=== PATIENT | female | born 1980 | race Caucasian/White ===

== ENCOUNTER 2018-07-19 23:52 | Emergency (ER) | payer OTHER ==
[~2018-07-19] VITALS: Ht 170.2 cm; Wt 73.1 kg
[2018-07-19 23:55] VITALS: BP_SYST 128; BP_SYST 28; BP_DIAS 79
--- NOTE | 2018-07-20 00:10 | NUR ---
EKG WAS DONE, PT TOLERATED WELL.
--- NOTE | 2018-07-20 00:14 | NUR ---
PT AMBULATED TO THE RESTROOM AND SENT TO LOBBY, PT VSS
--- NOTE | 2018-07-20 01:22 | NUR ---
PATIENT AMBULATED TO BED 2
--- NOTE | 2018-07-20 01:57 | NUR ---
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 PT REPORTS 5/10 CHEST PAIN PMH---ANXIETY ALLERGIES---CONTRAST DYE DENIES N/V/D; SKIN IS PINK/WARM/DRY; AAOX4 WITH EVEN AND STEADY GAIT; LUNGS CLEAR BL; HR EVEN AND REGULAR; PT DENIES ANY FEVER, CP, SOB, OR COUGH AT THIS TIME; PATIENT STATES PAIN OF 5/10 AT THIS TIME; VSS; PATIENT POSITIONED FOR COMFORT; HOB ELEVATED; BEDRAILS UP X2; BED DOWN. ER MD MADE AWARE OF PT STATUS.
[2018-07-20 03:52] VITALS: BP 132/80
== END 2018-07-20 03:50 | disposition home or self-care (01) ==
LOC: MED 23:52
DX: F41.9 Anxiety disorder, unspecified (principal); R00.2 Palpitations
CPT/HCPCS: 81002; 81025; 93005; 99284

== ENCOUNTER 2018-09-28 11:39 | Emergency (ER) | payer OTHER ==
[~2018-09-28] VITALS: Ht 170.2 cm; Wt 74.4 kg
[2018-09-28 11:50] VITALS: BP 122/80
[2018-09-28 12:50] VITALS: BP 131/81
--- NOTE | 2018-09-28 12:50 | NUR ---
C/O MULTIPLE MOSQUITO BITES ALL OVER FACE AND UPPER EXTREMITIES. PT STTAES SHE FOUND AND KILLED MULTIPLE MOSQUITOS IN HER BEDROOM. REPORTS ITCHY AND PAINFUL. HAS TRIED OVER THE COUNTER TOPICAL AND BENADRYL WITH NO RELIEF. SPOTS ARE RED, RAISED, AND CIRCULAR IN NATURE.
--- NOTE | 2018-09-28 13:00 | NUR ---
Patient discharged with v/s stable. Written and verbal after care instructions given and explained. Patient verbalized understanding. Ambulatory with steady gait. All questions addressed prior to discharge. Advised to follow up with PMD.
== END 2018-09-28 12:47 | disposition home or self-care (01) ==
LOC: MED 11:39
DX: S00.86XA Insect bite (nonvenomous) of other part of head, initial encounter (principal); S40.862A Insect bite (nonvenomous) of left upper arm, initial encounter; S40.861A Insect bite (nonvenomous) of right upper arm, initial encounter; Z88.8 Allergy status to other drugs, medicaments and biological substances; W57.XXXA Bitten or stung by nonvenomous insect and other nonvenomous arthropods, initial encounter; Y93.89 Activity, other specified; Y92.009 Unspecified place in unspecified non-institutional (private) residence as the place of occurrence of the external cause; Y99.8 Other external cause status
CPT/HCPCS: 99283

== ENCOUNTER 2018-10-05 22:31 | Emergency (ER) | payer OTHER ==
[~2018-10-05] VITALS: Ht 170.2 cm; Wt 74.4 kg
--- NOTE | 2018-10-05 22:40 | NUR ---
PT AMBULATED TO BED 2.
[2018-10-05 22:47] VITALS: BP 141/77
--- NOTE | 2018-10-05 23:10 | NUR ---
BIB SELF REPORTS BEING BITTEN BY AN UNKNOWN DOG WHILE WALKING HER DOG. 1 CM LAC TO LEFT TEMMPLE. BLEEDING CONTROLLED. PAIN 11/25. NO OTHER SYMPTOMS REPORTED.
--- NOTE | 2018-10-05 23:18 | NUR ---
PATIENT HAS NO INFORMATION ABOUT DOG AND DOES NOT WANT TO FILE REPORT.
--- NOTE | 2018-10-05 23:28 | NUR ---
DR CRAIG AT BEDSIDE.
[2018-10-05] MEDS ORDERED: BACITRACIN OINT 500 UNITS/GM PKT TP ONE (23:45)
[2018-10-05] MEDS ORDERED: IBUPROFEN 800 MG TAB PO ONE (23:45)
[2018-10-06 00:41] VITALS: BP 141/77
--- NOTE | 2018-10-06 00:42 | NUR ---
Patient discharged with v/s stable. Written and verbal after care instructions given and explained. Patient alert, oriented and verbalized understanding of instructions. Ambulatory with steady gait. All questions addressed prior to discharge. ID band removed. Patient advised to follow up with PMD. Rx of AUGMENTIN, MOTRIN given. Patient educated on indication of medication including possible reaction and side effects. Opportunity to ask questions provided and answered.
== END 2018-10-06 00:42 | disposition home or self-care (01) ==
LOC: MED 22:31
DX: S01.81XA Laceration without foreign body of other part of head, initial encounter (principal); Z88.8 Allergy status to other drugs, medicaments and biological substances; W54.0XXA Bitten by dog, initial encounter; Y93.K1 Activity, walking an animal; Y92.89 Other specified places as the place of occurrence of the external cause; Y99.8 Other external cause status
CPT/HCPCS: 90471; 90715; 99283

== ENCOUNTER 2019-01-25 16:09 | Emergency (ER) | payer OTHER ==
[~2019-01-25] VITALS: Ht 170.2 cm; Wt 76.4 kg
[2019-01-25 16:11] VITALS: BP 130/66
--- NOTE | 2019-01-25 16:25 | NUR ---
38 YR OLD FEMALE BIB SELF. C/O SUDDEN ONSET OF NUMBNESS TO LEFT SHOULDER RADIATING TO LEFT ARM AND LEFT HAND, INTERMITTENT DIZZINESS X 1 HOUR AGO. PT THOUGHT IT WAS HER ANXIETY, SO SHE TOOK LORAZEPAM X45 MINS AGO WITH NO RELIEF. PT DENIES CHEST PAIN, SOB. PMH: ANXIETY MED RX: LORAZEPAM, METRONIDAZOLE (UTI) ALLERGY:IODINE ( CONTRAST)
[2019-01-25 16:51] VITALS: BP 130/66
--- NOTE | 2019-01-25 16:51 | NUR ---
Patient discharged by Dr Goetz with v/s stable. Written and verbal after care instructions given and explained. Patient verbalized understanding. Ambulatory with steady gait. All questions addressed prior to discharge. Advised to follow up with PMD.
== END 2019-01-25 16:51 | disposition home or self-care (01) ==
LOC: MED 16:09
DX: F41.9 Anxiety disorder, unspecified (principal); Z88.8 Allergy status to other drugs, medicaments and biological substances
CPT/HCPCS: 81002; 81025; 99284

== ENCOUNTER 2020-05-24 10:45 | Emergency (ER) | payer OTHER ==
[~2020-05-24] VITALS: Ht 170.2 cm; Wt 74.8 kg
[2020-05-24 10:56] VITALS: BP 102/63
--- NOTE | 2020-05-24 11:07 | NUR ---
C/O COUGH, CHEST TIGHTNESS 5/10 X 2 WEEKS. PT HAD COVID TESTED + 2 WEEKS AGO.
[2020-05-24 13:03] LABS: BASOPHILS % (AUTO) 0.3 % (0.0-2.0); EOSINOPHILS % (AUTO) 0.1 % (0.0-4.0); HEMATOCRIT 42.4 % (36-48); HEMOGLOBIN 14.7 g/dL (12.0-16.0); LYMPHOCYTES # (AUTO) 2.1 K/uL (2.5-16.5); LYMPHOCYTES % (AUTO) 21.2 % (20.5-51.1); MEAN CORPUSCULAR HEMOGLOBIN 31 pg (27-31); MEAN CORPUSCULAR HGB CONC 35 g/dL (33-37); MEAN CORPUSCULAR VOLUME 88.2 fL (80-94); MONOCYTES # (AUTO) 0.7 K/uL (0.8-1.0); MONOCYTES % (AUTO) 6.9 % (1.7-9.3); NEUTROPHILS # (AUTO) 6.9 K/uL (1.8-7.7); NEUTROPHILS % (AUTO) 71.5 % (42.2-75.2); PLATELET COUNT (AUTO) 376 K/uL (140-450); RED BLOOD CELL COUNT(AUTO) 4.81 MIL/uL (4.20-5.40); RED CELL DISTRIBUTION WIDTH 12.2 % (11.6-13.7); WHITE BLOOD COUNT (AUTO) 9.7 K/uL (4.8-10.8)
[2020-05-24 13:50] LABS: ALBUMIN 4.6 g/dL (3.4-5.0); ANION GAP 14.3 (8-16); CARBON DIOXIDE 23.7 mmol/L (21-32); CREATININE 0.7 mg/dL (0.6-1.3); TOTAL BILIRUBIN 0.7 mg/dL (0.0-1.0)
--- NOTE | 2020-05-24 16:11 | NUR ---
PT DISCHARGED BY DR. CRANE.
== END 2020-05-24 16:11 | disposition home or self-care (01) ==
LOC: MED 10:45
DX: R06.02 Shortness of breath (principal); Z20.828 Contact with and (suspected) exposure to other viral communicable diseases; M54.9 Dorsalgia, unspecified; Z88.1 Allergy status to other antibiotic agents; Z88.8 Allergy status to other drugs, medicaments and biological substances
CPT/HCPCS: 36415; 71250; 80053; 84702; 85025; 85379; 93005; 99285

== ENCOUNTER 2021-07-27 16:17 | Emergency (ER) | payer OTHER ==
[~2021-07-27] VITALS: Ht 170.2 cm; Wt 78.5 kg
[2021-07-27 16:37] VITALS: BP 139/80
--- NOTE | 2021-07-27 16:52 | NUR ---
Dr. Mcclain is evaluating patient at bedside
--- NOTE | 2021-07-27 17:08 | NUR ---
BALL WORKER AT PT BEDSIDE.
--- NOTE | 2021-07-27 17:08 | NUR ---
40 yo female c/o chest pain x 3 days. 12/26, squeezing/sharp, aggravated by movement, radiating to back and shoulder blades. denies numbness/tingling. also reports SOB, nausea and palpitations. pt took tylenol and ibuprofen this morning and lorazepam 3 hours ago which provided no relief. patients states she has palpatations, last occurrence was 6 months ago pmh: anxiety allergy: azithromycin, iodine
--- NOTE | 2021-07-27 17:09 | NUR ---
Pt ambulated to restroom for urine sample
[2021-07-27 17:31] LABS: BASOPHILS # (AUTO) 0.7 K/uL (0.00-0.22); EOSINOPHILS # (AUTO) 0.1 K/uL (0-0.4); EOSINOPHILS % (AUTO) 0.9 % (0.0-4.0); HEMATOCRIT 39.2 % (36-48); HEMOGLOBIN 13.4 g/dL (12.0-16.0); LYMPHOCYTES # (AUTO) 1.1 K/uL (2.5-16.5); LYMPHOCYTES % (AUTO) 16.7 % (20.5-51.1); MEAN CORPUSCULAR HEMOGLOBIN 30 pg (27-31); MEAN CORPUSCULAR HGB CONC 34 g/dL (33-37); MEAN CORPUSCULAR VOLUME 88.2 fL (80-94); MONOCYTES # (AUTO) 0.5 K/uL (0.8-1.0); MONOCYTES % (AUTO) 8.1 % (1.7-9.3); NEUTROPHILS # (AUTO) 4.3 K/uL (1.8-7.7); NEUTROPHILS % (AUTO) 64.4 % (42.2-75.2); PLATELET COUNT (AUTO) 319 K/uL (140-450); RED BLOOD CELL COUNT(AUTO) 4.44 MIL/uL (4.20-5.40); RED CELL DISTRIBUTION WIDTH 12.1 % (11.6-13.7); WHITE BLOOD COUNT (AUTO) 6.6 K/uL (4.8-10.8)
[2021-07-27 17:32] LABS: BASOPHILS % (AUTO) 9.9 % (0.0-2.0)
[2021-07-27 17:55] LABS: ALBUMIN 3.8 g/dL (3.4-5.0); ANION GAP 10.3 (8-16); CARBON DIOXIDE 26.4 mmol/L (21-32); CREATININE 0.8 mg/dL (0.6-1.3); POTASSIUM 3.7 mmol/L (3.5-5.1); TOTAL BILIRUBIN 0.2 mg/dL (0.0-1.0)
--- NOTE | 2021-07-27 18:42 | NUR ---
Patient appears to be resting comfortably in bed. Vital Signs within normal limits. Respirations even and unlabored.
--- NOTE | 2021-07-27 19:18 | NUR ---
Report and transfer of care endorsed to SHYANN Aguilar and SHYANN Patel.
[2021-07-27] MEDS ORDERED: NAPR-1704 PO (19:43)
[2021-07-27 20:00] VITALS: BP 108/67
--- NOTE | 2021-07-27 20:01 | NUR ---
Patient discharged with v/s stable. Written and verbal after care instructions given and explained ABOUT CHEST PAIN. Patient alert, oriented and verbalized understanding of instructions. Ambulatory with steady gait. All questions addressed prior to discharge. ID band removed. Patient advised to follow up with PMD. Rx of NAPROXEN given. Patient educated on indication of medication including possible reaction and side effects. Opportunity to ask questions provided and answered.
== END 2021-07-27 20:35 | disposition home or self-care (01) ==
LOC: MED 16:17
DX: R07.9 Chest pain, unspecified (principal); R11.0 Nausea; F41.9 Anxiety disorder, unspecified; I11.9 Hypertensive heart disease without heart failure; Z88.1 Allergy status to other antibiotic agents; Z88.8 Allergy status to other drugs, medicaments and biological substances
CPT/HCPCS: 36415; 71045; 80053; 81025; 84484; 85025; 85379; 93005; 99285; Q0092

== ENCOUNTER 2021-11-29 14:45 | Emergency (ER) | payer OTHER ==
[~2021-11-29] VITALS: Ht 172.7 cm; Wt 79.8 kg
[~2021-11-29 14:45] MED LIST: NAPR-1704 PO
[2021-11-29 14:57] VITALS: BP 114/84
--- NOTE | 2021-11-29 15:23 | NUR ---
PT AMBULATED TO ER BED 9
--- NOTE | 2021-11-29 15:42 | NUR ---
PA BELTRE AT BEDSIDE EVALUATING PT
--- NOTE | 2021-11-29 15:45 | NUR ---
Female Contract Loader accompanied female patient for Rectal Exam.
[2021-11-29 15:55] VITALS: BP 114/84
--- NOTE | 2021-11-29 15:58 | NUR ---
Patient discharged with v/s stable. Written and verbal after care instructions about hemmorhoids given and explained. Patient alert, oriented and verbalized understanding of instructions. Ambulatory with steady gait. All questions addressed prior to discharge. ID band removed. Patient advised to follow up with PMD. Rx of Naproxen given. Patient educated on indication of medication including possible reaction and side effects. Opportunity to ask questions provided and answered.
== END 2021-11-29 15:58 | disposition home or self-care (01) ==
LOC: MED 14:45
DX: K64.4 Residual hemorrhoidal skin tags (principal); R03.0 Elevated blood-pressure reading, without diagnosis of hypertension; Z88.1 Allergy status to other antibiotic agents; Z88.8 Allergy status to other drugs, medicaments and biological substances; Z79.899 Other long term (current) drug therapy
CPT/HCPCS: 99282

== ENCOUNTER 2021-12-30 07:59 | Emergency (ER) | payer OTHER ==
[~2021-12-30] VITALS: Ht 172.7 cm; Wt 76.7 kg
[2021-12-30 08:04] VITALS: BP 123/85
--- NOTE | 2021-12-30 08:15 | NUR ---
41 Y/O FEMALE BIB SELF C/O OF COUGH, RUNNY NOSE X1 WEEK. PER PT SHE TESTED FOR COVID ON FRIDAY AND YESTERDAY, TESTED NEGATIVE. PT STATES THAT SHE HAS "COUGHING FITS" WITH YELLOW COLORED SPUTUM. TOOK ALBUTEROL AT 0630 AM TODAY. SATTING AT 99% RA AZITHROMYCIN, CONTRAST PMH: ASTHMA
--- NOTE | 2021-12-30 08:48 | NUR ---
Note opal in EDM - 12/30/21 at 1004 by ROMEO Patient discharged with v/s stable. Written and verbal after care instructions given and explained to parent/guardian. Parent/Guardian verbalized understanding. Carriedby parent. All questions addressed prior to discharge. Advised to follow up with PMD.
[2021-12-30] MEDS ORDERED: AMOX1TAB8 PO (09:27)
[2021-12-30 09:51] VITALS: BP 123/44
--- NOTE | 2021-12-30 09:51 | NUR ---
Patient discharged with v/s stable. Written and verbal after care instructions given and explained. Patient alert, oriented and verbalized understanding of instructions. Ambulatory with steady gait. All questions addressed prior to discharge. ID band removed. Patient advised to follow up with PMD. Rx of AMOXICILLIN given.
--- NOTE | 2021-12-30 09:52 | NUR ---
The patient's care was reviewed and supervised by Anahy Rubalcava RN.
== END 2021-12-30 09:52 | disposition home or self-care (01) ==
LOC: MED 07:59
DX: J06.9 Acute upper respiratory infection, unspecified (principal); Z20.822 Contact with and (suspected) exposure to COVID-19; J32.9 Chronic sinusitis, unspecified; Z91.040 Latex allergy status; Z88.1 Allergy status to other antibiotic agents
CPT/HCPCS: 71045; 87635-QW; 99284

== ENCOUNTER 2022-04-22 14:43 | Emergency (ER) | payer OTHER ==
[~2022-04-22] VITALS: Ht 172.7 cm; Wt 73.0 kg
[~2022-04-22 14:43] MED LIST changes: +AMOX1TAB8 PO
[2022-04-22 15:18] VITALS: BP 117/73
[2022-04-22] MEDS ORDERED: KETOROLAC 15 MG/ML VIAL IM ONE (17:30)
[2022-04-22 17:48] LABS: BASOPHILS % (AUTO) 0.4 % (0.0-2.0); EOSINOPHILS % (AUTO) 0.2 % (0.0-4.0); HEMATOCRIT 42.7 % (36-48); HEMOGLOBIN 14.5 g/dL (12.0-16.0); LYMPHOCYTES # (AUTO) 2.3 K/uL (2.5-16.5); MEAN CORPUSCULAR HEMOGLOBIN 31 pg (27-31); MEAN CORPUSCULAR HGB CONC 34 g/dL (33-37); MONOCYTES # (AUTO) 0.7 K/uL (0.8-1.0); MONOCYTES % (AUTO) 6.5 % (1.7-9.3); NEUTROPHILS # (AUTO) 7.4 K/uL (1.8-7.7); NEUTROPHILS % (AUTO) 70.9 % (42.2-75.2); PLATELET COUNT (AUTO) 354 K/uL (140-450); RED BLOOD CELL COUNT(AUTO) 4.75 MIL/uL (4.20-5.40); RED CELL DISTRIBUTION WIDTH 12.5 % (11.6-13.7); WHITE BLOOD COUNT (AUTO) 10.4 K/uL (4.8-10.8)
[2022-04-22 18:11] LABS: ALBUMIN 4.3 g/dL (3.4-5.0); ANION GAP 11.9 (8-16); ASPARTATE AMINOTRANSFERASE 12 U/L (15-37); CARBON DIOXIDE 31.1 mmol/L (21-32); CHLORIDE 103 mmol/L (98-107); CREATININE 0.7 mg/dL (0.6-1.3); GFR ARICAN-AMERICAN 119 mL/min (>90); GLUCOSE 104 mg/dL (74-106); SODIUM SERUM 142 mmol/L (136-145); TOTAL BILIRUBIN 0.3 mg/dL (0.0-1.0); UREA NITROGEN, BLOOD 12 mg/dL (7-18)
[2022-04-22] MEDS ORDERED: LIDOCAINE 5% 1 EA PATCH TP ONE ×3 (19:10→22:01)
[2022-04-22] MEDS ORDERED: HYDROcodone/APAP 5/325 MG 1 TAB TAB PO ONE (19:10)
[2022-04-22] MEDS ORDERED: HYDROcodone/APAP 5/325 MG 1 TAB TAB ONE ×2 (20:42→22:00)
[2022-04-22] MEDS ORDERED: KETOROLAC 15 MG/ML VIAL ONE ×2 (20:42→22:01)
[2022-04-22] MEDS ORDERED: LID5T TP (20:52)
[2022-04-22] MEDS ORDERED: IBUP-2213 PO (20:52)
== END 2022-04-22 22:11 | disposition home or self-care (01) ==
LOC: MED 14:43
DX: R07.9 Chest pain, unspecified (principal); J45.909 Unspecified asthma, uncomplicated; Z88.8 Allergy status to other drugs, medicaments and biological substances
CPT/HCPCS: 36415; 71045; 80053; 81025; 84484; 85025; 93005; 96372; 99285; J1885

== ENCOUNTER 2023-10-03 17:11 | Emergency (ER) | payer OTHER ==
[~2023-10-03] VITALS: Ht 172.7 cm; Wt 70.8 kg
[~2023-10-03 17:11] MED LIST changes: +IBUP-2213 PO; +LID5T TP
[2023-10-03 17:17] VITALS: BP 130/81; PULSE 97; RESP 18; TEMP 97.3; O2SAT 100
[2023-10-03 18:23] LABS: APPEARANCE,URINE CLEAR (CLEAR); BASOPHILS % (AUTO) 0.6 % (0.0-2.0); BILIRUBIN,URINE NEGATIVE (NEGATIVE); BLOOD, URINE NEGATIVE (NEGATIVE); COLOR,URINE YELLOW (YELLOW); EOSINOPHILS # (AUTO) 0.1 K/uL (0-0.4); EOSINOPHILS % (AUTO) 0.8 % (0.0-4.0); HEMATOCRIT 42.5 % (36-48); HEMOGLOBIN 14.7 g/dL (12.0-16.0); LEUKOCYTE ESTERASE ,URINE NEGATIVE (NEGATIVE); LYMPHOCYTES # (AUTO) 2.9 K/uL (2.5-16.5); MEAN CORPUSCULAR HEMOGLOBIN 31 pg (27-31); MEAN CORPUSCULAR HGB CONC 35 g/dL (33-37); MEAN CORPUSCULAR VOLUME 89.2 fL (80-94); MONOCYTES # (AUTO) 0.6 K/uL (0.8-1.0); MONOCYTES % (AUTO) 8.4 % (1.7-9.3); NEUTROPHILS # (AUTO) 3.8 K/uL (1.8-7.7); NEUTROPHILS % (AUTO) 51.2 % (42.2-75.2); NITRITE, URINE NEGATIVE (NEGATIVE); PH,URINE 6.5 (5.0-9.0); PLATELET COUNT (AUTO) 309 K/uL (140-450); PROTEIN,URINE NEGATIVE (NEGATIVE); RED BLOOD CELL COUNT(AUTO) 4.76 MIL/uL (4.20-5.40); RED CELL DISTRIBUTION WIDTH 12.6 % (11.6-13.7); UGLUCOSE NEGATIVE (NEGATIVE); UROBILINOGEN,URINE 0.2 EU/dL (0.2 - 1); WHITE BLOOD COUNT (AUTO) 7.4 K/uL (4.8-10.8)
[2023-10-03 18:53] LABS: ALANINE AMINOTRANSFERASE 20 U/L (12-78); ALBUMIN 4.4 g/dL (3.4-5.0); ALKALINE PHOSPHATASE 47 U/L (50-136); ANION GAP 13.6 (8-16); ASPARTATE AMINOTRANSFERASE 11 U/L (15-37); CALCIUM 8.8 mg/dL (8.5-10.1); CARBON DIOXIDE 26.1 mmol/L (21-32); CHLORIDE 102 mmol/L (98-107); CREATININE 0.9 mg/dL (0.6-1.3); GFR ARICAN-AMERICAN 88 mL/min (>90); GFR NON ARICAN-AMERICAN 73 mL/min (>90); GLUCOSE 109 mg/dL (74-106); LIPASE 22 U/L (16-77); MAGNESIUM 2.1 mg/dL (1.8-2.4); POTASSIUM 3.7 mmol/L (3.5-5.1); SODIUM SERUM 138 mmol/L (136-145); TOTAL BILIRUBIN 0.4 mg/dL (0.0-1.0); UREA NITROGEN, BLOOD 12 mg/dL (7-18)
[2023-10-03] MEDS: NACL 0.9% 1,000 ML IV ONE (19:01)
[2023-10-03] MEDS: MAG SULF 2000 MG/WATER PREMIX 50 ML IV ONE (19:30)
[2023-10-03] MEDS: DEXAMETHASONE 4 MG/ML VIAL IVP ONE (19:30)
[2023-10-03 19:34] VITALS: BP 126/85; PULSE 88; RESP 11
[2023-10-03] MEDS: KETOROLAC 30 MG/ML VIAL IVP ONE (19:37)
[2023-10-03] MEDS: METOCLOPRAMIDE 10 MG/2 ML INJ VIAL IVP ONE (19:40)
[2023-10-03 19:48] VITALS: O2SAT 98
== END 2023-10-03 21:18 | disposition home or self-care (01) ==
LOC: MED 17:11
DX: R51.9 Headache, unspecified (principal); F41.9 Anxiety disorder, unspecified; Z79.899 Other long term (current) drug therapy
CPT/HCPCS: 36415; 70450; 80053; 81003; 81025; 83690; 83735; 84443; 84484; 85025; 93005; 96361; 96374; 96375; 99285; J1100; J1885; J2765; J3475; J7030